=== PATIENT | female | born 2000 | race Caucasian/White ===

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

== ENCOUNTER 2021-03-30 21:41 | Inpatient (IN) | payer OTHER ==
[~2021-03-30] VITALS: Ht 165.1 cm; Wt 96.6 kg
[2021-03-30 23:01] LABS: HEMOGLOBIN 16.7 gm/dl (12.3-15.3); RED BLOOD COUNT 5.58 M/UL (4.00-5.10); WHITE BLOOD COUNT 10.9 K/UL (4.5-11.0)
[2021-03-30 23:27] LABS: BUN/CREATININE RATIO 11 (0-10)
[2021-03-31] MEDS ORDERED: LANTUS100 UNIT/1 SQ (01:41)
[2021-03-31] MEDS ORDERED: NOVOLOG100 UNIT/1 SC (01:42)
[2021-03-31] MEDS ORDERED: ZOLOFT25 MG PO (01:43)
[2021-03-31 01:54] LABS: BUN/CREATININE RATIO 10 (0-10)
[2021-03-31 06:01] LABS: BUN/CREATININE RATIO 9 (0-10)
[2021-03-31 09:54] LABS: BUN/CREATININE RATIO 8 (0-10)
[2021-03-31 13:22] LABS: BUN/CREATININE RATIO 7 (0-10)
[2021-03-31 17:35] LABS: BUN/CREATININE RATIO 5 (0-10)
[2021-03-31 22:03] LABS: BUN/CREATININE RATIO 7 (0-10)
[2021-04-01 01:28] LABS: BUN/CREATININE RATIO 5 (0-10)
[2021-04-01 06:18] LABS: HEMOGLOBIN 13.8 gm/dl (12.3-15.3); RED BLOOD COUNT 4.74 M/UL (4.00-5.10); WHITE BLOOD COUNT 7.4 K/UL (4.5-11.0)
[2021-04-01 06:41] LABS: BUN/CREATININE RATIO 4 (0-10)
[2021-04-01 12:38] LABS: BUN/CREATININE RATIO 3 (0-10)
[2021-04-01 18:44] LABS: BUN/CREATININE RATIO 4 (0-10)
[2021-04-01 23:54] LABS: BUN/CREATININE RATIO 4 (0-10)
[2021-04-02 03:58] LABS: HEMOGLOBIN 14.9 gm/dl (12.3-15.3); RED BLOOD COUNT 5.06 M/UL (4.00-5.10)
[2021-04-02 04:05] LABS: WHITE BLOOD COUNT 5.5 K/UL (4.5-11.0)
[2021-04-02 07:36] LABS: BUN/CREATININE RATIO 3 (0-10)
[2021-04-02 13:18] LABS: BUN/CREATININE RATIO 3 (0-10)
[2021-04-02 18:08] LABS: BUN/CREATININE RATIO 7 (0-10)
[2021-04-03 05:37] LABS: HEMOGLOBIN 13.1 gm/dl (12.3-15.3)
[2021-04-03 05:39] LABS: RED BLOOD COUNT 4.5 M/UL (4.00-5.10)
[2021-04-03] MEDS ORDERED: DEX4 GLUCOSE4 GM PO (08:57)
[2021-04-03] MEDS ORDERED: HUMALOG 10100 UNITS/ SC ×3 (08:57→11:16)
[2021-04-03] MEDS ORDERED: LANTUS INS100 UTS/M1 SC ×3 (08:57→12:26)
[2021-04-03] MEDS ORDERED: ZOLOFT25 MG PO (08:57)
[2021-04-03 09:20] LABS: BUN/CREATININE RATIO 6 (0-10)
[2021-04-03] MEDS ORDERED: K-DUR TAB 20 M20 MEQ PO (10:04)
[2021-04-03] MEDS ORDERED: ZOFRAN 4 MG TAB4 MG PO (10:16)
== END 2021-04-03 13:13 | disposition home or self-care (01) | DRG 638 ==
LOC: ER1 21:41 → CCU 03-31 00:33 → CDU 03-31 00:33 → CCU 03-31 01:23
PROVIDERS: Emergency Medicine; Internal Medicine; ADMIT Internal Medicine
DX: E10.10 Type 1 diabetes mellitus with ketoacidosis without coma (principal); F32.1 Major depressive disorder, single episode, moderate; Z20.822 Contact with and (suspected) exposure to COVID-19; F17.210 Nicotine dependence, cigarettes, uncomplicated; E87.6 Hypokalemia; E66.9 Obesity, unspecified; E83.42 Hypomagnesemia; F41.9 Anxiety disorder, unspecified; E83.39 Other disorders of phosphorus metabolism; Z91.14 Patient's other noncompliance with medication regimen; Z63.5 Disruption of family by separation and divorce; Z79.4 Long term (current) use of insulin; Z68.35 Body mass index [BMI] 35.0-35.9, adult; Z71.6 Tobacco abuse counseling
CPT/HCPCS: 36415; 80048; 80053; 81001; 82009; 82550; 82553; 82803; 82962; 83036; 83690; 83735; 84100; 84484; 85025; 85027; 86140; 87040; 96374; 96375; 99284; C9113; J1650; J2405; J3475; J7030; J7040; U0002

== ENCOUNTER 2021-07-02 08:12 | Inpatient (IN) | payer OTHER ==
[~2021-07-02] VITALS: Ht 165.1 cm; Wt 86.2 kg
[~2021-07-02 08:12] MED LIST: DEX4 GLUCOSE4 GM PO; HUMALOG 10100 UNITS/ SC; K-DUR TAB 20 M20 MEQ PO; LANTUS INS100 UTS/M1 SC; LANTUS100 UNIT/1 SQ; NOVOLOG100 UNIT/1 SC; ZOFRAN 4 MG TAB4 MG PO; ZOLOFT25 MG PO
[2021-07-02 09:09] LABS: HEMOGLOBIN 18.5 gm/dl (12.3-15.3); RED BLOOD COUNT 6.03 M/UL (4.00-5.10)
[2021-07-02 09:48] LABS: WHITE BLOOD COUNT 40.2 K/UL (4.5-11.0)
[2021-07-02 09:56] LABS: BUN/CREATININE RATIO 18 (0-10)
[2021-07-02 14:51] LABS: BUN/CREATININE RATIO 19 (0-10)
[2021-07-02] MEDS ORDERED: LANTUS SOL100 UNIT/1 INJ (14:53)
[2021-07-02] MEDS ORDERED: NOVOLOG FL100 UNIT/1 INJ (14:54)
[2021-07-02 17:47] LABS: BUN/CREATININE RATIO 14 (0-10)
[2021-07-02 21:03] LABS: BUN/CREATININE RATIO 12 (0-10)
[2021-07-03 02:41] LABS: HEMOGLOBIN 14.1 gm/dl (12.3-15.3); RED BLOOD COUNT 4.68 M/UL (4.00-5.10); WHITE BLOOD COUNT 17.5 K/UL (4.5-11.0)
[2021-07-03 02:57] LABS: BUN/CREATININE RATIO 12 (0-10)
[2021-07-03 20:42] LABS: BUN/CREATININE RATIO 8 (0-10)
[2021-07-04 05:08] LABS: HEMOGLOBIN 13.1 gm/dl (12.3-15.3); RED BLOOD COUNT 4.41 M/UL (4.00-5.10)
[2021-07-04 05:10] LABS: WHITE BLOOD COUNT 8.4 K/UL (4.5-11.0)
[2021-07-04 05:47] LABS: BUN/CREATININE RATIO 7 (0-10)
[2021-07-04 11:08] LABS: BUN/CREATININE RATIO 6 (0-10)
[2021-07-04 20:31] LABS: BUN/CREATININE RATIO 7 (0-10)
[2021-07-05 06:07] LABS: HEMOGLOBIN 13.3 gm/dl (12.3-15.3); RED BLOOD COUNT 4.46 M/UL (4.00-5.10)
[2021-07-05 06:27] LABS: BUN/CREATININE RATIO 7 (0-10)
[2021-07-05] MEDS ORDERED: NOVOLOG FL100 UNIT/1 INJ (16:58)
[2021-07-05] MEDS ORDERED: LANTUS SOL100 UNIT/1 INJ (16:58)
== END 2021-07-05 16:47 | disposition home or self-care (01) | DRG 637 ==
LOC: ER1 08:12 → CDU 10:43 → CCU 10:43
PROVIDERS: Emergency Medicine; Physician Assistant; ADMIT Internal Medicine
DX: E10.10 Type 1 diabetes mellitus with ketoacidosis without coma (principal); G93.41 Metabolic encephalopathy; R65.10 Systemic inflammatory response syndrome (SIRS) of non-infectious origin without acute organ dysfunction; Z20.822 Contact with and (suspected) exposure to COVID-19; F12.10 Cannabis abuse, uncomplicated; K44.9 Diaphragmatic hernia without obstruction or gangrene; Z91.14 Patient's other noncompliance with medication regimen; Z79.4 Long term (current) use of insulin; Z86.16 Personal history of COVID-19
CPT/HCPCS: 36415; 51702; 71045; 80048; 80053; 80307; 81001; 82009; 82803; 82962; 83036; 83605; 83690; 83735; 84100; 84132; 84703; 85007; 85025; 85027; 87040; 96374; 96375; 99285; J0610; J2405; J2543; J3475; J3480; J7030; Q9967; U0002